=== PATIENT | female | born 1990 | race American Indian/Alaskan Native ===

== ENCOUNTER 2016-11-29 12:03 | Emergency (ER) | payer SELFPAY ==
[2016-11-29 12:41] VITALS: BP 124/70
[2016-11-29] MEDS ORDERED: MAGIC MOUTHWASH PO ONE (14:00)
[2016-11-29] MEDS ORDERED: ZITHROMAX PO ONE (14:23)
--- NOTE | 2016-11-29 14:34 | Emergency Department Report ---
Entered by JAIME MYRICK, acting as scribe for ANU DORMAN PA. ED ENT HPI - General Chief complaint: Earache Stated complaint: SORE THROAT/NECK/EARS Time Seen by Provider: 11/29/16 13:09 Source: patient Mode of arrival: Ambulatory Limitations: No Limitations - History of Present Illness Initial comments: 26 year old female presents to the ED for evaluation of sore throat for 2 days. Patient describes pain as constant but notes it worsens with talking and swallowing. She reports associated bilateral ear pain, chills and productive cough with yellow mucous. Symptoms are mildly relieved with Mucinex. Denies fever, nausea, vomiting, abdominal pain. MD complaint: sore throat Onset/Timin -: days(s) Location: throat Quality: constant Improves with: none Worsens with: swallowing, other (talking) Associated Symptoms: cough (productive with yellow mucous), pain with swallowing , sore throat, other (bilateral ear pain, chills). denies: fever, hearing loss , discharge from ear, rhinorrhea - Related Data Previous Rx's Medication Instructions Recorded Last Taken Type Acetaminophen [Tylenol] 500 mg PO Q6HR #24 tablet 11/29/16 Unknown Rx Azithromycin [Zithromax] 250 mg PO DAILY #4 tablet 11/29/16 Unknown Rx guaiFENesin/CODEINE [Robitussin AC] 5 ml PO TID #90 ml 11/29/16 Unknown Rx Allergies Allergy/AdvReac Type Severity Reaction Status Date / Time No Known Allergies Allergy Verified 11/29/16 13:39 ED Dental HPI - General Chief complaint: Earache Stated complaint: SORE THROAT/NECK/EARS Source: patient Mode of arrival: Ambulatory Limitations: No Limitations - Related Data Previous Rx's Medication Instructions Recorded Last Taken Type Acetaminophen [Tylenol] 500 mg PO Q6HR #24 tablet 11/29/16 Unknown Rx Azithromycin [Zithromax] 250 mg PO DAILY #4 tablet 11/29/16 Unknown Rx guaiFENesin/CODEINE [Robitussin AC] 5 ml PO TID #90 ml 11/29/16 Unknown Rx Allergies Allergy/AdvReac Type Severity Reaction Status Date / Time No Known Allergies Allergy Verified 11/29/16 13:39 ED Review of Systems Comment: All other systems reviewed and negative Constitutional: chills. denies: fever ENT: ear pain (bilateral), throat pain. denies: other (rhinorrhea) Respiratory: cough (productive with yellow mucous) Gastrointestinal: denies: abdominal pain, nausea, vomiting ED Past Medical Hx - Past Medical History Previous Medical History?: No - Surgical History Past Surgical History?: No - Social History Smoking Status: Current Every Day Smoker Substance Use Type: None - Medications Home Medications: Home Medications Medication Instructions Recorded Confirmed Last Taken Type Acetaminophen [Tylenol] 500 mg PO Q6HR #24 tablet 11/29/16 Unknown Rx Azithromycin [Zithromax] 250 mg PO DAILY #4 tablet 11/29/16 Unknown Rx guaiFENesin/CODEINE [Robitussin AC] 5 ml PO TID #90 ml 11/29/16 Unknown Rx ED Physical Exam - General Limitations: No Limitations - Other Other exam information: GENERAL: Patient is alert and oriented x 3. No apparent distress, normal gait, atraumatic. HEAD: Head is normocephalic and atraumatic. EYES: Extraocular movements are intact. Pupils are equal, round, and reactive to light and accommodation. EARS: Symmetrical, atraumatic, non tender, ear canal clear with moderate cerumen , tympanic membrane non inflamed bilaterally. Mild serous fluid present behind left tympanic membrane. Preauricular lymphadenopathy and tenderness present bilaterally. Gross auditory nml bilaterally. NOSE: Nose symmetrical, nontender. Nares appeared normal. MOUTH:Mouth is well hydrated and without lesions. Mucous membranes are moist. Uvula midline. Tongue not elevated. Mild tonsilar swelling, no exudate, erythema or lesions. Patent airway. No TMJ tenderness or clicking. NECK: Supple. Non edematous, no carotid bruits. Anterior cervical ymphadenopathy present. LUNGS: Symmetrical with respiration. No wheezing, rales or crackles, CTAB. HEART: Regular rate and rhythm with normal S1/S2 present. No murmurs, rubs, or gallops. EXTREMITIES/MUSCULOSKELETAL: No cyanosis, clubbing, rash, lesions or edema. Full ROM bilaterally. SKIN: Warm and dry. No lesions, ulceration or induration present PSYCHIATRIC: Mood is congruent with affect. ED Course Vital Signs 11/29/16 12:38 Temperature 98.3 F Pulse Rate 80 Respiratory 16 Rate Blood Pressure 124/70 O2 Sat by Pulse 99 Oximetry ED Medical Decision Making - Medical Decision Making 26-year-old female previously presents with pharyngitis ED course: Patient received Magic mouthwash and ED. azithromycin 500 mg given once ED Rapid strep test ordered. Rapid strep test negative Discussed findings with patient. Discussed the patient URI symptoms and [id number] symptomatic relief. Discussed to medication of antibiotics for the remainder of the 4 days. Robitussin before meals for cough and pain. Motrin or Tylenol as needed for pain. Vital signs are stable. Patient is in no acute or respiratory distress. ED Disposition Clinical Impression: URI (upper respiratory infection) Qualifiers: URI type: unspecified URI Qualified Code(s): J06.9 - Acute upper respiratory infection, unspecified Disposition: DISCHARGED TO HOME OR SELFCARE Is pt being admited?: No Does the pt Need Aspirin: No Condition: Stable Instructions: Upper Respiratory Infection (ED) Prescriptions: Acetaminophen [Tylenol] 500 mg PO Q6HR #24 tablet Azithromycin [Zithromax] 250 mg PO DAILY #4 tablet guaiFENesin/CODEINE [Robitussin AC] 5 ml PO TID #90 ml Referrals: PRIMARY MD SHAWN [Primary Care Provider] - 3-5 Days JESENIA SCHULTZ MD [Referring] - 3-5 Days CHUY STEPHENSON MD [Referring] - 3-5 Days PURA ESPINAL MD [Staff Physician] - 3-5 Days Forms: Accompanied Note, Work/School Release Form(ED) Time of Disposition: 14:30 This documentation as recorded by the RAMEZ momin REBEKAH,accurately reflects the service I personally performed and the decisions made by ,ANU DORMAN PA.
== END 2016-11-29 14:40 | disposition home or self-care (01) ==
LOC: ED 12:03
DX: J06.9 Acute upper respiratory infection, unspecified (principal); F17.200 Nicotine dependence, unspecified, uncomplicated
CPT/HCPCS: 87116; 87430; 99282

== ENCOUNTER 2017-01-31 15:46 | Emergency (ER) | payer SELFPAY ==
[2017-01-31 16:02] VITALS: BP 144/71
[2017-01-31] MEDS ORDERED: TORADOL IM ONE (19:38)
--- NOTE | 2017-01-31 20:31 | Emergency Department Report ---
Entered by ANNABELLA BROWNING, acting as scribe for MU HALL PA. ED Back Pain/Injury HPI - General Chief Complaint: Back Pain/Injury Stated Complaint: POSS PULLED MUSCLE/SHOULDER PAIN /NUMBNESS Time Seen by Provider: 01/31/17 19:34 Source: patient Limitations: No Limitations - History of Present Illness Initial Comments: 26 y/o female with no pertinent PMHx c/o right upper back pain under right shoulder blade that began 4 days ago. Rates pain a 9/10 in severity, which she describes as sharp and aching in quality. Patient states the pain radiates down her right arm. Notes pain is aggravated with movement and is alleviated with inactivity. Denies numbness and tingling. 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 Patient states the constant movement might have caused her pain. Took Goody powders and Ibuprofen 800 mg with short relief. LMP 01/30/2017. NKDA. LUEVANO Complaint: back pain (right upper back) Onset/Timin -: days(s) Similar Symptoms Previously: No Place: home Radiation: other (right arm) Severity: severe Severity scale (0 -10): 9 Quality: sharp, aching Consistency: constant Improves With: none (Took Goody powders and Ibuprofen 800 mg with short relief) Worsens With: movement Context: unknown Associated Symptoms: denies other symptoms. denies: chest pain, numbness, fever /chills, rash, shortness of breath, other (tingling) Treatments Prior to Arrival: other (Goody powders and Ibuprofen) - Related Data Previous Rx's Medication Instructions Recorded Last Taken Type Acetaminophen [Tylenol] 500 mg PO Q6HR #24 tablet 11/29/16 Unknown Rx Azithromycin [Zithromax] 250 mg PO DAILY #4 tablet 11/29/16 Unknown Rx guaiFENesin/CODEINE [Robitussin AC] 5 ml PO TID #90 ml 11/29/16 Unknown Rx Naproxen [Naprosyn TAB] 500 mg PO BID #30 tablet 01/31/17 Unknown Rx methOCARBAMOL [Robaxin TAB] 500 mg PO BID #30 tab 01/31/17 Unknown Rx Allergies Allergy/AdvReac Type Severity Reaction Status Date / Time No Known Allergies Allergy Verified 11/29/16 13:39 ED Review of Systems Comment: All other systems reviewed and negative Constitutional: no symptoms reported. denies: chills, fever Respiratory: denies: cough, shortness of breath, wheezing Cardiovascular: denies: chest pain Endocrine: no symptoms reported Gastrointestinal: denies: abdominal pain, nausea, vomiting, diarrhea Genitourinary: denies: urgency, dysuria, discharge Musculoskeletal: back pain (right upper back). denies: joint swelling, arthralgia Skin: denies: rash, lesions Neurological: denies: headache, weakness, numbness, paresthesias, other ( tingling) ED Past Medical Hx - Past Medical History Previous Medical History?: Yes - Surgical History Past Surgical History?: Yes Additional Surgical History: x 2 - Social History Smoking Status: Never Smoker Substance Use Type: Alcohol - Medications Home Medications: Home Medications Medication Instructions Recorded Confirmed Last Taken Type Acetaminophen [Tylenol] 500 mg PO Q6HR #24 tablet 11/29/16 Unknown Rx Azithromycin [Zithromax] 250 mg PO DAILY #4 tablet 11/29/16 Unknown Rx guaiFENesin/CODEINE [Robitussin AC] 5 ml PO TID #90 ml 11/29/16 Unknown Rx Naproxen [Naprosyn TAB] 500 mg PO BID #30 tablet 01/31/17 Unknown Rx methOCARBAMOL [Robaxin TAB] 500 mg PO BID #30 tab 01/31/17 Unknown Rx ED Physical Exam - General Limitations: No Limitations General appearance: alert, in no apparent distress - Head Head exam: Present: atraumatic, normocephalic - Eye Eye exam: Present: normal appearance, EOMI Pupils: Present: normal accommodation - ENT ENT exam: Present: normal exam, mucous membranes moist - Neck Neck exam: Present: normal inspection, full ROM. Absent: lymphadenopathy - Respiratory Respiratory exam: Present: normal lung sounds bilaterally. Absent: respiratory distress, wheezes, rales, rhonchi, stridor - Cardiovascular Cardiovascular Exam: Present: regular rate, normal rhythm, normal heart sounds - GI/Abdominal GI/Abdominal exam: Present: soft, normal bowel sounds - Extremities Exam Extremities exam: Present: normal inspection, full ROM - Back Exam Back exam: Present: full ROM, tenderness (point tenderness to tip of right scapula). Absent: paraspinal tenderness, vertebral tenderness - Neurological Exam Neurological exam: Present: alert, oriented X3 - Psychiatric Psychiatric exam: Present: normal affect, normal mood - Skin Skin exam: Present: warm, dry, intact. Absent: rash ED Course Vital Signs 01/31/17 01/31/17 16:00 16:31 Temperature 99.3 F 99.3 F Pulse Rate 91 H 91 H Respiratory 18 20 Rate Blood Pressure 144/71 Blood Pressure 144/71 [Right] O2 Sat by Pulse 100 100 Oximetry ED Medical Decision Making - Medical Decision Making Patient was evaluated in fast track area of ED by this provider. Patient presented with right upper back pain for 4 days. In the ED, she will be given a shot of Toradol. Patient is in no acute distress at this time. She will be discharged home with prescriptions for a muscle relaxer and Naproxen. Patient instructed to follow up with PCP if symptoms persist. Patient verbalized understanding. She is encouraged to return to the emergency room for any worsening symptoms. ED Disposition Clinical Impression: Back pain Qualifiers: Back pain location: thoracic back pain Chronicity: acute Back pain laterality: right Qualified Code(s): M54.6 - Pain in thoracic spine Disposition: DISCHARGED TO HOME OR SELFCARE Is pt being admited?: No Does the pt Need Aspirin: No Condition: Stable Instructions: Back Pain (ED) Additional Instructions: Please take pain medication as prescribed. Follow up with your Primary Care provider. Prescriptions: methOCARBAMOL [Robaxin TAB] 500 mg PO BID #30 tab Naproxen [Naprosyn TAB] 500 mg PO BID #30 tablet Referrals: PRIMARY CARE, [Primary Care Provider] - 3-5 Days [facility] [Provider Group] - 3-5 Days This documentation as recorded by the NALLELY momin JASMINE,accurately reflects the service I personally performed and the decisions made by me, MU HALL PA.
== END 2017-01-31 20:25 | disposition home or self-care (01) ==
LOC: ED 15:46
DX: M54.6 Pain in thoracic spine (principal)
CPT/HCPCS: 96372; 99282; J1885